=== PATIENT | male | born 1960 | race Caucasian/White ===

== ENCOUNTER 2016-09-28 13:31 | Emergency (ER) | payer BC, OTHER ==
[~2016-09-28] VITALS: Ht 172.7 cm; Wt 95.5 kg
[2016-09-28 14:01] VITALS: BP 96/84; PULSE 0
[2016-09-28 14:06] LABS: HEMOGLOBIN 15.9 g/dl (13.5-18.0); MEAN CELL VOLUME 96 fl (80.0-100.0); MEAN CORPUSCULAR HEMOGLOBIN 29 pg (27.0-31.0); MEAN CORPUSCULAR HGB CONC 30 g/dl (33.0-37.0); MEAN PLATELET VOLUME 11.7 fl (7.4-10.4); PLATELET COUNT 100 K/mm3 (130-400); RED BLOOD COUNT 5.51 M/mm3 (4.20-5.60); WHITE BLOOD COUNT 11.2 K/mm3 (4.8-10.8)
[2016-09-28 14:09] LABS: ADD PATHOLOGY DIFF REVIEW NO; HEMATOCRIT 52.7 % (42.0-52.0)
[2016-09-28 14:15] LABS: CALCIUM 9.5 mg/dL (8.4-10.2); CREATININE, serum 1.15 mg/dL (0.66-1.25)
[2016-09-28 14:18] LABS: POTASSIUM 4.3 mmol/L (3.4-5.0)
[2016-09-28 14:19] LABS: BAND 6 % (0-10); EOSINOPHIL 2 % (0-4); NEUTROPHILS 30 % (42.0-75.2); PLATELET ESTIMATE DECREASED (NORMAL); TOTAL CELLS COUNTED 100
== END 2016-09-28 21:53 | disposition expired ==
LOC: COL.ER 13:31
PROVIDERS: Family Medicine
DX: I46.9 Cardiac arrest, cause unspecified (principal); I49.01 Ventricular fibrillation
CPT/HCPCS: J0171; J7030